=== PATIENT | male | born 1970 | race Two or more races ===

== ENCOUNTER 2019-04-13 16:10 | Emergency (ER) | payer MEDICAID ==
[~2019-04-13] VITALS: Ht 170.2 cm; Wt 65.9 kg
[2019-04-13 16:42] LABS: GLUCOSE,POINT OF CARE 505 MG/DL (70-110)
[2019-04-13] MEDS ORDERED: INSU100V37 SQ (16:42)
[2019-04-13] MEDS ORDERED: SODIUM CHLORIDE 0.9% 2,000 ML IV ONE (19:00)
[2019-04-13 19:17] LABS: BASOPHILS % (AUTO) 0.4 % (0.0-2.0); EOSINOPHILS % (AUTO) 0.3 % (1.0-6.0); HEMATOCRIT 47.9 % (41-53); HEMOGLOBIN 15.6 g/dL (13.5-17.5); LYMPHOCYTES # (AUTO) 0.8 K/uL (1.0-4.8); LYMPHOCYTES % (AUTO) 24.5 % (22.0-44.0); MEAN CORPUSCULAR HEMOGLOBIN 29.3 pg (26.0-34.0); MEAN CORPUSCULAR HGB CONC 32.6 G/dL (31.0-37.0); MEAN CORPUSCULAR VOLUME 90 fL (80-100); MONOCYTES # (AUTO) 0.3 K/uL (0.1-1.0); MONOCYTES % (AUTO) 9.3 % (2.0-9.0); NEUTROPHILS # (AUTO) 2.2 K/uL (1.8-7.7); NEUTROPHILS % (AUTO) 65.5 % (40.0-70.0); PLATELET COUNT (AUTO) 166 K/uL (150-450); RED BLOOD CELL COUNT(AUTO) 5.34 MIL/uL (4.50-5.90); RED CELL DISTRIBUTION WIDTH 14.9 % (11.5-14.5)
[2019-04-13 19:42] LABS: LACTIC ACID 1.3 mmol/L (0.4-2.0)
[2019-04-13 20:01] LABS: ALBUMIN 3.9 g/dL (3.4-5.0); BILIRUBIN,TOTAL 0.6 mg/dL (0.1-1.0); CALCIUM, TOTAL 10.3 mg/dL (8.8-10.5); CREATININE 1.28 mg/dL (0.60-1.30); MAGNESIUM 1.9 mg/dL (1.80-2.40); PHOSPHORUS 2.6 mg/dL (2.5-4.9); POTASSIUM 3.2 mmol/L (3.5-5.1); TOTAL PROTEIN, SERUM 7.6 g/dL (6.4-8.2)
[2019-04-13] MEDS ORDERED: INSULIN REGULAR, HUMAN 100 UNITS/ML IVP ONE ×2 (20:30→20:45)
[2019-04-13] MEDS ORDERED: POTASSIUM CHLORIDE 20 MEQ ER TABLET PO ONE ×2 (20:30→23:00)
[2019-04-13 20:44] LABS: GLUCOSE,POINT OF CARE 412 MG/DL (70-110)
[2019-04-13] MEDS ORDERED: ONDANSETRON HCL 4 MG/2 ML VIAL IVP ONE (20:45)
[2019-04-13] MEDS: POTASSIUM CHL 10 MEQ/WATER 50 ML IV SCH ×2 (20:56→22:37)
[2019-04-13 21:52] LABS: GLUCOSE,POINT OF CARE 340 MG/DL (70-110)
[2019-04-13 22:40] LABS: ANION GAP 10 mmol/L (8-16); CALCIUM, TOTAL 8.6 mg/dL (8.8-10.5); CARBON DIOXIDE 24 mmol/L (22-29); CHLORIDE 102 mmol/L (98-107); CREATININE 0.94 mg/dL (0.60-1.30); GLOMERULAR FILTR. RATE CALC > 60 mL/min (>60); GLUCOSE,RANDOM 303 mg/dL (70-110); POTASSIUM 3.1 mmol/L (3.5-5.1); SODIUM SERUM 136 mmol/L (136-145)
[2019-04-13 22:45] LABS: UREA NITROGEN, BLOOD 23 mg/dL (7-18)
[2019-04-13] MEDS ORDERED: INSULIN REGULAR, HUMAN 100 UNITS/ML SQ ONE (23:00)
[2019-04-14 00:03] VITALS: BP 130/78
[2019-04-14 00:04] LABS: GLUCOSE,POINT OF CARE 254 MG/DL (70-110)
== END 2019-04-14 00:04 | disposition home or self-care (01) ==
LOC: EMS 16:14
DX: E11.65 Type 2 diabetes mellitus with hyperglycemia (principal); E87.6 Hypokalemia; E87.1 Hypo-osmolality and hyponatremia; R11.2 Nausea with vomiting, unspecified; Z98.890 Other specified postprocedural states; Z79.84 Long term (current) use of oral hypoglycemic drugs
CPT/HCPCS: 36415; 80048; 80053; 82010; 82962; 83605; 83735; 84100; 85025; 96365; 96366; 96372; 96375; 99284; J1815; J2405; J3480; J7030; 82948

== ENCOUNTER 2019-09-14 17:26 | Inpatient (IN) | payer MEDICAID ==
[~2019-09-14] VITALS: Ht 170.2 cm; Wt 61.4 kg
[~2019-09-14 17:26] MED LIST: INSU100V37 SQ
[2019-09-14] MEDS ORDERED: INSULIN REGULAR, HUMAN 100 UNITS/ML IVP ONE (17:45)
[2019-09-14] MEDS ORDERED: SODIUM CHLORIDE 0.9% 1,000 ML IV ONE (17:45)
[2019-09-14 18:16] LABS: BASOPHILS % (AUTO) 0.4 % (0.0-2.0); EOSINOPHILS % (AUTO) 0.1 % (1.0-6.0); HEMATOCRIT 46.8 % (41-53); HEMOGLOBIN 14.4 g/dL (13.5-17.5); LYMPHOCYTES # (AUTO) 1.5 K/uL (1.0-4.8); LYMPHOCYTES % (AUTO) 12.1 % (22.0-44.0); MEAN CORPUSCULAR HEMOGLOBIN 32.7 pg (26.0-34.0); MEAN CORPUSCULAR HGB CONC 30.7 G/dL (31.0-37.0); MEAN CORPUSCULAR VOLUME 107 fL (80-100); MONOCYTES # (AUTO) 0.3 K/uL (0.1-1.0); MONOCYTES % (AUTO) 2.5 % (2.0-9.0); NEUTROPHILS # (AUTO) 10.4 K/uL (1.8-7.7); NEUTROPHILS % (AUTO) 84.9 % (40.0-70.0); PLATELET COUNT (AUTO) 248 K/uL (150-450); RED BLOOD CELL COUNT(AUTO) 4.39 MIL/uL (4.50-5.90); RED CELL DISTRIBUTION WIDTH 14.7 % (11.5-14.5)
[2019-09-14 18:34] LABS: ALANINE AMINOTRANSFERASE 60 U/L (12-78); ALBUMIN 4.7 g/dL (3.4-5.0); ALKALINE PHOSPHATASE 155 U/L (46-116); ASPARTATE AMINOTRANSFERASE 24 U/L (15-37); BILIRUBIN,TOTAL 0.7 mg/dL (0.1-1.0); CALCIUM, TOTAL 8.4 mg/dL (8.8-10.5); CHLORIDE 95 mmol/L (98-107); CREATININE 1.88 mg/dL (0.60-1.30); GLOMERULAR FILTR. RATE CALC 38 mL/min (>60); PHOSPHORUS 8.1 mg/dL (2.5-4.9); POTASSIUM 4.3 mmol/L (3.5-5.1); SODIUM SERUM 135 mmol/L (136-145); TOTAL PROTEIN, SERUM 8.4 g/dL (6.4-8.2); UREA NITROGEN, BLOOD 29 mg/dL (7-18)
[2019-09-14 18:36] LABS: PROTHROMBIN TIME 10.1 SEC (9.4-11.6)
[2019-09-14 18:46] LABS: ANION GAP 35 mmol/L (8-16); CARBON DIOXIDE < 5 mmol/L (22-29)
[2019-09-14 18:47] LABS: GLUCOSE,RANDOM 682 mg/dL (70-110)
[2019-09-14 18:49] LABS: B-TYPE NATRIURETIC PEPTIDE 23 pg/mL (0-100)
[2019-09-14] MEDS ORDERED: POTASSIUM CHLORIDE 40 MEQ in SODIUM CHLORIDE 0.45% 1,000 ML IV PRN (18:57)
[2019-09-14] MEDS ORDERED: POTASSIUM CHL 20 MEQ/0.45% NS 1,000 ML IV PRN (18:57)
[2019-09-14] MEDS ORDERED: INSULIN REGULAR, HUMAN 100 UNITS in SODIUM CHLORIDE 0.9% 99 ML IV PRN ×2 (18:57)
[2019-09-14] MEDS ORDERED: DEXTROSE 5%-0.45% SODIUM CHL 1,000 ML IV PRN (18:57)
[2019-09-14] MEDS ORDERED: SODIUM CHLORIDE 0.45% 1,000 ML IV PRN (18:57)
[2019-09-14] MEDS ORDERED: SODIUM CHLORIDE 0.9% 1,000 ML IV SCH (18:57)
[2019-09-14 18:58] LABS: ACETONE,BLOOD 1:16 (NEGATIVE)
[2019-09-14] MEDS ORDERED: DEXTROSE 50%-WATER 25 GM/50 ML SYRINGE IVP PRN (19:00)
[2019-09-14 19:10] LABS: GLUCOSE,POINT OF CARE 584 MG/DL (70-110)
[2019-09-14] MEDS ORDERED: ONDANSETRON HCL 4 MG/2 ML VIAL IVP PRN (19:15)
[2019-09-14] MEDS ORDERED: ACETAMINOPHEN 325 MG TABLET PO PRN (19:15)
[2019-09-14] MEDS ORDERED: 0.9% SODIUM CHLORIDE 10 ML SYRINGE IVP PRN (19:15)
[2019-09-14 19:44] LABS: AMPHET/METH SCREEN,URINE NEGATIVE (NEGATIVE); BARBITURATE SCREEN, URINE NEGATIVE (NEGATIVE); BENZODIAZEPINES SCREEN,URINE NEGATIVE (NEGATIVE); CANNABINOID SCREEN,URINE NEGATIVE (NEGATIVE); COCAINE SCREEN,URINE NEGATIVE (NEGATIVE); METHADONE SCREEN, URINE NEGATIVE (NEGATIVE); OPIATE SCREEN,URINE NEGATIVE (NEGATIVE)
[2019-09-14 19:45] LABS: APPEARANCE,URINE CLEAR (CLEAR); BILIRUBIN,URINE NEGATIVE (NEGATIVE); GLUCOSE, URINE (UA) >=1000 mg/dL (NEGATIVE); KETONES,URINE >=80 mg/dL (NEGATIVE); LEUKOCYTE ESTERASE ,URINE NEGATIVE (NEGATIVE); NITRATE,URINE NEGATIVE (NEGATIVE); OCCULT BLOOD,URINE LARGE (NEGATIVE); PROTEIN,URINE SEE CONFIRM (NEGATIVE); UROBILINOGEN,URINE 0.2 mg/dL (<=1.0)
[2019-09-14 19:46] LABS: ABG A-A DIFF O2 6.8 mmHg (10-20.0); ABG BASE EXCESS -30.5 mmol/L (-2.0-3.0); ABG CARBOXYHEMOGLOBIN 0.2 % (0.0-1.5); ABG METHEMOGLOBIN 0.6 % (0.0-1.5); ABG OXYGEN SATURATION 98.5 % (95.0-98.0); ABG OXYHEMOGLOBIN 97.7 % (94.0-100.0); ABG TOTAL HEMOGLOBIN 15.1 G/dL (12.0-18.0); PO2, ARTERIAL BG 131.2 mmHg (88.0-96.0); SOURCE, BLOOD GAS ARTERIAL
[2019-09-14 19:47] LABS: PHENCYCLIDINE SCREEN,URINE NEGATIVE (NEGATIVE)
[2019-09-14 19:56] LABS: ABG PCO2 11 mmHg (35-45); ABG PH 6.931 (7.35-7.450)
[2019-09-14 19:57] LABS: ABG HCO3 5.8 mmol/L (22.0-26.0); O2 DEVICE,BLOOD GAS ROOM AIR (ROOM AIR); SITE, BLOOD GAS LFT RADIAL
[2019-09-14] MEDS ORDERED: SODIUM BICARBONATE [ADULT] 8.4% 50 MEQ/50 ML SYRINGE IVP ONE ×2 (20:00→20:15)
[2019-09-14 20:12] LABS: GLUCOSE,POINT OF CARE 559 MG/DL (70-110)
[2019-09-14 20:49] LABS: SULFOSALICYLIC ACID,URINE 2+ (Negative)
[2019-09-14 20:50] LABS: BACTERIA,URINE Few /HPF (None Seen); SQUAMOUS EPITHELIAL CELL,UR Few /LPF (None Seen); WBC,URINE 0-2 /HPF (0-5); YEAST,URINE None Seen /HPF (None Seen)
[2019-09-14] MEDS: INSULIN REGULAR, HUMAN 100 UNITS/ML IVP PRN ×2 (22:20→23:35)
[2019-09-14 22:21] LABS: GLUCOSE,POINT OF CARE 534 MG/DL (70-110)
[2019-09-14 22:21] LABS: GLUCOSE,POINT OF CARE 549 MG/DL (70-110)
[2019-09-14 23:57] LABS: GLUCOMETER DEV NAME(LOC) AHU.; GLUCOSE,POINT OF CARE 448 MG/DL (70-110)
[2019-09-15 00:03] LABS: CALCIUM, TOTAL 7.9 mg/dL (8.8-10.5); CREATININE 1.68 mg/dL (0.60-1.30); POTASSIUM 3.6 mmol/L (3.5-5.1)
[2019-09-15] MEDS ORDERED: 0.9% SODIUM CHLORIDE 10 ML SYRINGE IVP PRN (00:15)
[2019-09-15] MEDS ORDERED: MAGNESIUM HYDROXIDE SUSPENSION 30 ML UDCUP PO PRN (00:15)
[2019-09-15] MEDS ORDERED: ACETAMINOPHEN 325 MG TABLET PO PRN (00:15)
[2019-09-15] MEDS ORDERED: ONDANSETRON HCL 4 MG/2 ML VIAL IVP PRN (00:15)
[2019-09-15] MEDS ORDERED: OxyCODONE HCL/ACETAMINOPHEN 5-325 MG TABLET PO PRN ×2 (00:15)
[2019-09-15] MEDS: INSULIN REGULAR, HUMAN 100 UNITS/ML IVP PRN (00:33)
[2019-09-15] MEDS: DOCUSATE SODIUM 100 MG CAPSULE PO SCH ×3 (00:58→20:47)
[2019-09-15 01:00] LABS: ABG A-A DIFF O2 11.6 mmHg (10-20.0); ABG BASE EXCESS -21.5 mmol/L (-2.0-3.0); ABG CARBOXYHEMOGLOBIN 0.4 % (0.0-1.5); ABG METHEMOGLOBIN 0.3 % (0.0-1.5); ABG OXYGEN CONTENT 19.7 mL/dL (15.0-23.0); ABG OXYGEN SATURATION 98.5 % (95.0-98.0); ABG OXYHEMOGLOBIN 97.8 % (94.0-100.0); ABG PH 7.256 (7.35-7.450); ABG TOTAL HEMOGLOBIN 14.2 G/dL (12.0-18.0); PO2, ARTERIAL BG 122.7 mmHg (88.0-96.0); SOURCE, BLOOD GAS ARTERIAL; TEMPERATURE, FAHRENHEIT, BG 98.5 FAHREN (96.0-98.6)
[2019-09-15 01:04] LABS: ABG PCO2 13 mmHg (35-45)
[2019-09-15 01:05] LABS: O2 DEVICE,BLOOD GAS ROOM AIR (ROOM AIR); SITE, BLOOD GAS LFT RADIAL
[2019-09-15] MEDS ORDERED: POTASSIUM CHLORIDE 40 MEQ in SODIUM CHLORIDE 0.45% 1,000 ML IV PRN (01:55)
[2019-09-15] MEDS ORDERED: POTASSIUM CHL 20 MEQ/0.45% NS 1,000 ML IV PRN (01:55)
[2019-09-15] MEDS ORDERED: INSULIN REGULAR, HUMAN 100 UNITS in SODIUM CHLORIDE 0.9% 99 ML IV PRN ×2 (01:55)
[2019-09-15] MEDS ORDERED: SODIUM CHLORIDE 0.45% 1,000 ML IV PRN (01:55)
[2019-09-15] MEDS ORDERED: INSULIN REGULAR, HUMAN 100 UNITS/ML IVP PRN (02:00)
[2019-09-15] MEDS: DEXTROSE 5%-0.45% SODIUM CHL 1,000 ML IV PRN ×2 (02:17→14:42)
[2019-09-15 03:40] LABS: GLUCOSE,POINT OF CARE 352 MG/DL (70-110)
[2019-09-15 03:40] LABS: GLUCOSE,POINT OF CARE 252 MG/DL (70-110)
[2019-09-15 03:40] LABS: GLUCOSE,POINT OF CARE 228 MG/DL (70-110)
[2019-09-15 03:40] LABS: GLUCOSE,POINT OF CARE 194 MG/DL (70-110)
[2019-09-15 04:41] LABS: GLUCOSE,POINT OF CARE 179 MG/DL (70-110)
[2019-09-15 05:27] LABS: ALBUMIN 3.9 g/dL (3.4-5.0); BILIRUBIN,TOTAL 0.6 mg/dL (0.1-1.0); CALCIUM, TOTAL 8.4 mg/dL (8.8-10.5); CREATININE 1.69 mg/dL (0.60-1.30); POTASSIUM 3.4 mmol/L (3.5-5.1); TOTAL PROTEIN, SERUM 7.2 g/dL (6.4-8.2)
[2019-09-15 05:58] LABS: GLUCOSE,POINT OF CARE 145 MG/DL (70-110)
[2019-09-15 06:52] LABS: GLUCOSE,POINT OF CARE 159 MG/DL (70-110)
[2019-09-15 08:58] LABS: ABG A-A DIFF O2 15.3 mmHg (10-20.0); ABG BASE EXCESS -9.5 mmol/L (-2.0-3.0); ABG CARBOXYHEMOGLOBIN 0.7 % (0.0-1.5); ABG HCO3 18.2 mmol/L (22.0-26.0); ABG METHEMOGLOBIN 0.2 % (0.0-1.5); ABG OXYGEN CONTENT 19.1 mL/dL (15.0-23.0); ABG OXYGEN SATURATION 98.3 % (95.0-98.0); ABG OXYHEMOGLOBIN 97.4 % (94.0-100.0); ABG PCO2 27 mmHg (35-45); ABG PH 7.379 (7.35-7.450); ABG TOTAL HEMOGLOBIN 13.9 G/dL (12.0-18.0); SOURCE, BLOOD GAS ARTERIAL; TEMPERATURE, FAHRENHEIT, BG 98.6 FAHREN (96.0-98.6)
[2019-09-15 09:01] LABS: O2 DEVICE,BLOOD GAS ROOM AIR (ROOM AIR); SITE, BLOOD GAS RT RADIAL
[2019-09-15 09:12] LABS: CALCIUM, TOTAL 8.6 mg/dL (8.8-10.5); CREATININE 1.79 mg/dL (0.60-1.30)
[2019-09-15 09:22] LABS: POTASSIUM 2.9 mmol/L (3.5-5.1)
[2019-09-15] MEDS: FAMOTIDINE 10 MG/ML 2 ML VIAL IVP SCH (09:36)
[2019-09-15 09:41] LABS: GLUCOSE,POINT OF CARE 129 MG/DL (70-110)
[2019-09-15 09:41] LABS: GLUCOSE,POINT OF CARE 122 MG/DL (70-110)
[2019-09-15 10:39] LABS: GLUCOSE,POINT OF CARE 84 MG/DL (70-110)
[2019-09-15 11:25] LABS: GLUCOSE,POINT OF CARE 88 MG/DL (70-110)
[2019-09-15 11:25] LABS: GLUCOSE,POINT OF CARE 74 MG/DL (70-110)
[2019-09-15 13:13] LABS: CALCIUM, TOTAL 8.5 mg/dL (8.8-10.5); CREATININE 1.64 mg/dL (0.60-1.30); POTASSIUM 3.1 mmol/L (3.5-5.1)
[2019-09-15 13:50] LABS: GLUCOSE,POINT OF CARE 160 MG/DL (70-110)
[2019-09-15 13:50] LABS: GLUCOSE,POINT OF CARE 118 MG/DL (70-110)
[2019-09-15 13:50] LABS: GLUCOSE,POINT OF CARE 159 MG/DL (70-110)
[2019-09-15 14:15] VITALS: BP 133/76
[2019-09-15 14:40] LABS: GLUCOSE,POINT OF CARE 109 MG/DL (70-110)
[2019-09-15 15:15] VITALS: BP 120/62
[2019-09-15 16:09] LABS: GLUCOSE,POINT OF CARE 77 MG/DL (70-110)
[2019-09-15 16:09] LABS: GLUCOSE,POINT OF CARE 89 MG/DL (70-110)
[2019-09-15 16:15] VITALS: BP 111/62
[2019-09-15 16:54] LABS: GLUCOSE,POINT OF CARE 109 MG/DL (70-110)
[2019-09-15 17:15] VITALS: BP 113/65
[2019-09-15 17:46] LABS: CALCIUM, TOTAL 8.5 mg/dL (8.8-10.5); CREATININE 1.42 mg/dL (0.60-1.30); POTASSIUM 3.1 mmol/L (3.5-5.1)
[2019-09-15 17:48] LABS: GLUCOSE,POINT OF CARE 146 MG/DL (70-110)
[2019-09-15 17:48] LABS: GLUCOSE,POINT OF CARE 165 MG/DL (70-110)
[2019-09-15 18:15] VITALS: BP 106/60
[2019-09-15 19:06] LABS: GLUCOSE,POINT OF CARE 159 MG/DL (70-110)
[2019-09-15 19:43] LABS: GLUCOSE,POINT OF CARE 140 MG/DL (70-110)
[2019-09-15 21:15] LABS: GLUCOSE,POINT OF CARE 110 MG/DL (70-110)
[2019-09-15 21:28] LABS: CALCIUM, TOTAL 8.6 mg/dL (8.8-10.5); CREATININE 1.37 mg/dL (0.60-1.30); POTASSIUM 3.4 mmol/L (3.5-5.1)
[2019-09-15 22:34] LABS: GLUCOSE,POINT OF CARE 103 MG/DL (70-110)
[2019-09-16] VITALS (12 sets, daily range): BP systolic 104–117; BP diastolic 62–80
[2019-09-16 00:42] LABS: GLUCOSE,POINT OF CARE 115 MG/DL (70-110)
[2019-09-16 01:40] LABS: GLUCOSE,POINT OF CARE 138 MG/DL (70-110)
[2019-09-16 02:03] LABS: ANION GAP 15 mmol/L (8-16); CALCIUM, TOTAL 8.5 mg/dL (8.8-10.5); CARBON DIOXIDE 18 mmol/L (22-29); CHLORIDE 106 mmol/L (98-107); CREATININE 1.24 mg/dL (0.60-1.30); GLOMERULAR FILTR. RATE CALC > 60 mL/min (>60); GLUCOSE,RANDOM 172 mg/dL (70-110); POTASSIUM 3.1 mmol/L (3.5-5.1); SODIUM SERUM 139 mmol/L (136-145); UREA NITROGEN, BLOOD 19 mg/dL (7-18)
[2019-09-16 02:23] LABS: GLUCOSE,POINT OF CARE 193 MG/DL (70-110)
[2019-09-16 03:37] LABS: GLUCOSE,POINT OF CARE 190 MG/DL (70-110)
[2019-09-16 04:34] LABS: GLUCOSE,POINT OF CARE 194 MG/DL (70-110)
[2019-09-16 05:01] LABS: BASOPHILS % (AUTO) 0.3 % (0.0-2.0); EOSINOPHILS % (AUTO) 0.3 % (1.0-6.0); HEMATOCRIT 38.2 % (41-53); HEMOGLOBIN 13.1 g/dL (13.5-17.5); LYMPHOCYTES # (AUTO) 0.6 K/uL (1.0-4.8); LYMPHOCYTES % (AUTO) 14.2 % (22.0-44.0); MEAN CORPUSCULAR HEMOGLOBIN 32.9 pg (26.0-34.0); MEAN CORPUSCULAR HGB CONC 34.4 G/dL (31.0-37.0); MEAN CORPUSCULAR VOLUME 96 fL (80-100); MONOCYTES # (AUTO) 0.4 K/uL (0.1-1.0); NEUTROPHILS # (AUTO) 3.4 K/uL (1.8-7.7); NEUTROPHILS % (AUTO) 77.2 % (40.0-70.0); PLATELET COUNT (AUTO) 132 K/uL (150-450); RED BLOOD CELL COUNT(AUTO) 3.99 MIL/uL (4.50-5.90); RED CELL DISTRIBUTION WIDTH 14.2 % (11.5-14.5)
[2019-09-16 05:06] LABS: ANION GAP 13 mmol/L (8-16); CALCIUM, TOTAL 8.5 mg/dL (8.8-10.5); CARBON DIOXIDE 19 mmol/L (22-29); CHLORIDE 106 mmol/L (98-107); CREATININE 1.22 mg/dL (0.60-1.30); GLOMERULAR FILTR. RATE CALC > 60 mL/min (>60); GLUCOSE,RANDOM 235 mg/dL (70-110); SODIUM SERUM 138 mmol/L (136-145); UREA NITROGEN, BLOOD 18 mg/dL (7-18)
[2019-09-16 05:43] LABS: GLUCOSE,POINT OF CARE 209 MG/DL (70-110)
[2019-09-16 06:37] LABS: GLUCOSE,POINT OF CARE 216 MG/DL (70-110)
[2019-09-16] MEDS ORDERED: DEXTROSE 50%-WATER 25 GM/50 ML SYRINGE IVP PRN (07:45)
[2019-09-16] MEDS ORDERED: POTASSIUM CHLORIDE 20 MEQ ER TABLET PO PRN (07:45)
[2019-09-16 08:01] LABS: ABG BASE EXCESS -8.5 mmol/L (-2.0-3.0); ABG CARBOXYHEMOGLOBIN 0.7 % (0.0-1.5); ABG HCO3 18.9 mmol/L (22.0-26.0); ABG METHEMOGLOBIN 0.3 % (0.0-1.5); ABG OXYGEN CONTENT 19.3 mL/dL (15.0-23.0); ABG PCO2 28 mmHg (35-45); ABG PH 7.386 (7.35-7.450); ABG TOTAL HEMOGLOBIN 14.1 G/dL (12.0-18.0); SOURCE, BLOOD GAS ARTERIAL; TEMPERATURE, FAHRENHEIT, BG 98.6 FAHREN (96.0-98.6)
[2019-09-16 08:02] LABS: O2 DEVICE,BLOOD GAS ROOM AIR (ROOM AIR); SITE, BLOOD GAS RT RADIAL
[2019-09-16] MEDS: INSULIN GLARGINE,HUM.REC.ANLOG 100 UNITS/ML SQ SCH ×2 (08:24→20:35)
[2019-09-16] MEDS: FAMOTIDINE 10 MG/ML 2 ML VIAL IVP SCH (08:24)
[2019-09-16] MEDS: DOCUSATE SODIUM 100 MG CAPSULE PO SCH ×2 (08:24→20:14)
[2019-09-16 08:49] LABS: GLUCOMETER DEV NAME(LOC) AHU.; GLUCOSE,POINT OF CARE 244 MG/DL (70-110)
[2019-09-16] MEDS: INSULIN LISPRO 100 UNITS/ML SQ PRN ×4 (09:00→20:35)
[2019-09-16 09:45] LABS: ANION GAP 16 mmol/L (8-16); CALCIUM, TOTAL 8.8 mg/dL (8.8-10.5); CARBON DIOXIDE 17 mmol/L (22-29); CHLORIDE 104 mmol/L (98-107); CREATININE 1.23 mg/dL (0.60-1.30); GLOMERULAR FILTR. RATE CALC > 60 mL/min (>60); GLUCOSE,RANDOM 264 mg/dL (70-110); POTASSIUM 3.2 mmol/L (3.5-5.1); SODIUM SERUM 137 mmol/L (136-145); UREA NITROGEN, BLOOD 17 mg/dL (7-18)
[2019-09-16 12:25] LABS: GLUCOSE,POINT OF CARE 209 MG/DL (70-110)
[2019-09-16 12:25] LABS: GLUCOSE,POINT OF CARE 176 MG/DL (70-110)
[2019-09-16 14:05] LABS: GLUCOSE,POINT OF CARE 243 MG/DL (70-110)
[2019-09-16 16:31] LABS: CALCIUM, TOTAL 8.8 mg/dL (8.8-10.5); CREATININE 1.3 mg/dL (0.60-1.30); POTASSIUM 3.6 mmol/L (3.5-5.1)
[2019-09-16 22:46] LABS: CALCIUM, TOTAL 9.6 mg/dL (8.8-10.5); CREATININE 1.36 mg/dL (0.60-1.30); POTASSIUM 3.2 mmol/L (3.5-5.1)
[2019-09-16 23:37] LABS: GLUCOMETER DEV NAME(LOC) 6N.2; GLUCOSE,POINT OF CARE 362 MG/DL (70-110)
[2019-09-17] VITALS: BP 113/75
[2019-09-17 04:00] VITALS: BP 116/78
[2019-09-17] MEDS: INSULIN LISPRO 100 UNITS/ML SQ PRN ×4 (06:17→20:57)
[2019-09-17 06:38] LABS: GLUCOMETER DEV NAME(LOC) 6S.1; GLUCOSE,POINT OF CARE 164 MG/DL (70-110)
[2019-09-17 07:11] LABS: ANION GAP 11 mmol/L (8-16); CALCIUM, TOTAL 8.7 mg/dL (8.8-10.5); CARBON DIOXIDE 22 mmol/L (22-29); CHLORIDE 106 mmol/L (98-107); CREATININE 0.75 mg/dL (0.60-1.30); GLOMERULAR FILTR. RATE CALC > 60 mL/min (>60); GLUCOSE,RANDOM 170 mg/dL (70-110); SODIUM SERUM 139 mmol/L (136-145); UREA NITROGEN, BLOOD 15 mg/dL (7-18)
[2019-09-17 07:24] LABS: POTASSIUM 2.9 mmol/L (3.5-5.1)
[2019-09-17] MEDS ORDERED: SODIUM CHLORIDE 0.9% 500 ML IV ONE (08:01)
[2019-09-17 08:08] VITALS: BP 115/72
[2019-09-17] MEDS: FAMOTIDINE 10 MG/ML 2 ML VIAL IVP SCH (08:33)
[2019-09-17] MEDS: DOCUSATE SODIUM 100 MG CAPSULE PO SCH ×2 (08:33→20:02)
[2019-09-17] MEDS: POTASSIUM CHL 10 MEQ/WATER 50 ML IV PRN ×4 (08:33→13:03)
[2019-09-17] MEDS: INSULIN GLARGINE,HUM.REC.ANLOG 100 UNITS/ML SQ SCH ×2 (08:41→20:57)
[2019-09-17 12:00] VITALS: BP 118/76
[2019-09-17 12:19] LABS: CALCIUM, TOTAL 8.8 mg/dL (8.8-10.5); CARBON DIOXIDE 21 mmol/L (22-29); GLOMERULAR FILTR. RATE CALC > 60 mL/min (>60); GLUCOSE,RANDOM 325 mg/dL (70-110); UREA NITROGEN, BLOOD 15 mg/dL (7-18)
[2019-09-17 12:27] LABS: ANION GAP 12 mmol/L (8-16); CHLORIDE 105 mmol/L (98-107); POTASSIUM 4.2 mmol/L (3.5-5.1); SODIUM SERUM 138 mmol/L (136-145)
[2019-09-17 15:43] LABS: GLUCOMETER DEV NAME(LOC) 6S.1; GLUCOSE,POINT OF CARE 304 MG/DL (70-110)
[2019-09-17 16:19] VITALS: BP 113/66
[2019-09-17 17:51] LABS: GLUCOMETER DEV NAME(LOC) 6S.1; GLUCOSE,POINT OF CARE 296 MG/DL (70-110)
[2019-09-17 20:04] VITALS: BP 106/66
[2019-09-18 00:09] VITALS: BP 109/70
[2019-09-18 04:00] VITALS: BP 119/78
[2019-09-18 05:05] LABS: GLUCOMETER DEV NAME(LOC) 6S.1; GLUCOSE,POINT OF CARE 223 MG/DL (70-110)
[2019-09-18 06:54] LABS: GLUCOMETER DEV NAME(LOC) 6N.2; GLUCOSE,POINT OF CARE 86 MG/DL (70-110)
[2019-09-18 08:40] VITALS: BP 104/66
[2019-09-18] MEDS ORDERED: INSLAN SQ (08:54)
[2019-09-18] MEDS: INSULIN GLARGINE,HUM.REC.ANLOG 100 UNITS/ML SQ SCH (09:00)
[2019-09-18] MEDS: FAMOTIDINE 10 MG/ML 2 ML VIAL IVP SCH (09:21)
[2019-09-18] MEDS: DOCUSATE SODIUM 100 MG CAPSULE PO SCH (09:21)
[2019-09-18] MEDS: INSULIN LISPRO 100 UNITS/ML SQ PRN (12:05)
[2019-09-18 13:24] LABS: GLUCOMETER DEV NAME(LOC) 6S.1; GLUCOSE,POINT OF CARE 324 MG/DL (70-110)
== END 2019-09-18 13:28 | disposition home or self-care (01) | DRG 420 ==
LOC: EMS 17:27 → ICUN 09-15 00:06 → 6N 09-15 11:59
PROVIDERS: ADMIT Internal Medicine; ATTEND Internal Medicine
DX: E11.10 Type 2 diabetes mellitus with ketoacidosis without coma (principal); G93.41 Metabolic encephalopathy; N17.9 Acute kidney failure, unspecified; E87.2 Acidosis; R65.10 Systemic inflammatory response syndrome (SIRS) of non-infectious origin without acute organ dysfunction; Z79.4 Long term (current) use of insulin; Z91.14 Patient's other noncompliance with medication regimen; E87.6 Hypokalemia; E11.65 Type 2 diabetes mellitus with hyperglycemia; E11.649 Type 2 diabetes mellitus with hypoglycemia without coma; I10 Essential (primary) hypertension
CPT/HCPCS: 36600; 82805; 83735; 83935; 84100; 93005; 99291; G0378; J1815; J3480; J3490; J7030; J7040; J7050